=== PATIENT | male | born 1950 | race Caucasian/White ===

== ENCOUNTER 2016-11-27 09:04 | Emergency (ER) | payer OTHER ==
[2016-11-27 09:11] VITALS: TEMP 98.4
--- NOTE | 2016-11-27 10:13 | EDPHY ---
H & P Time Seen by Provider: 11/27/16 10:12 HPI/ROS: Chief complaint. Blood in stool HPI. 66-year-old male presents with blood in stool for 1 day. He has blood on his toilet paper with wiping. He does have a history of hemorrhoids but does not feel it is inflamed or sore. No abdominal pain or nausea vomiting. He had a colonoscopy in July that showed some polyps. His med list shows Plavix and aspirin but now he is taking aspirin only. No previous history of GI bleeding. The blood is described as maroon in color. ROS Constitutional. no fever/chills, no weakness Eyes. no problems with vision ENT. no sore throat, no nasal drainage Cardiovascular. no chest pain Respiratory. no shortness of breath, no cough Abdominal. Blood in stool . no problems urinating MS. no calf pain/swelling, no neck/back pain, no joint pain Skin. no rash Lymph. no swollen glands Neuro. no headache, no dizziness, no difficulty walking or with speech Past Medical/Surgical History: Past medical history significant for angioplasty with stent, dyslipidemia Social History: , nonsmoker, no alcohol Smoking Status: Never smoked Physical Exam: General Appearance: Alert well-developed male mild distress vital signs are stable Eyes: Pupils equal and round no pallor or injection. ENT, Mouth: Mucous membranes are moist. Respiratory: There are no retractions, lungs are clear to auscultation. Cardiovascular: Regular rate and rhythm. Gastrointestinal: Abdomen is soft and nontender, no masses, bowel sounds normal. Rectal exam shows a non thrombosed or bleeding hemorrhoid. Stool from above is brown in color Neurological: Awake and alert, sensory and motor exams grossly normal. Skin: Warm and dry, no rashes. Musculoskeletal: Neck is supple nontender. Extremities symmetrical, full range of motion. Psychiatric: Patient is oriented X 3, there is no agitation. Constitutional: Initial Vital Signs Temperature (C) 36.9 C 11/27/16 09:09 Heart Rate 66 11/27/16 09:09 Respiratory Rate 16 11/27/16 09:09 Blood Pressure 171/83 H 11/27/16 09:09 O2 Sat (%) 94 11/27/16 09:09 O2 Delivery Mode Room Air Allergies/Adverse Reactions: No Known Allergies Allergy (Unverified 03/19/09 11:22) Home Medications: Medication Instructions Recorded Aspirin 03/19/09 COREG CR 03/19/09 Lisinopril 03/19/09 Plavix 03/19/09 Simvastatin 03/19/09 Aspirin [Aspirin 81mg (*)] 08/01/14 Medical Decision Making Procedures: IV normal saline ED Course/Re-evaluation: Re-evaluation 11:55 a.m..--patient and I discussed laboratory evaluation. We discussed treatment plan including criteria for return and importance of follow- up and further evaluation. He expresses understanding and agreement Differential Diagnosis: There is no evidence of bleeding at this point. I suspect that the bleeding may have been coming from his hemorrhoid. His workup is normal including stable vital signs, stable blood level, Hemoccult-negative stool. I considered lower GI bleed, colitis, diverticulitis as well. He has had no abdominal pain - Data Points Laboratory Results: Laboratory Results 11/27/16 10:30 11/27/16 10:30 11/27/16 11/27/16 11/27/16 10:30 10:30 10:30 WBC 7.63 10^3/uL 10^3/uL (3.80-9.50) RBC 5.34 10^6/uL 10^6/uL (4.40-6.38) Hgb 16.1 g/dL g/dL (13.7-17.5) Hct 46.1 % % (40.0-51.0) MCV 86.3 fL fL (81.5-99.8) MCH 30.1 pg pg (27.9-34.1) MCHC 34.9 g/dL g/dL (32.4-36.7) RDW 12.5 % % (11.5-15.2) Plt Count 245 10^3/uL 10^3/uL (150-400) MPV 9.0 fL fL (8.7-11.7) Neut % (Auto) 59.3 % % (39.3-74.2) Lymph % (Auto) 29.0 % % (15.0-45.0) Rap[place] % (Auto) 8.5 % % (4.5-13.0) Eos % (Auto) 2.1 % % (0.6-7.6) Baso % (Auto) 0.8 % % (0.3-1.7) Nucleat RBC Rel Count 0.0 % % (0.0-0.2) Absolute Neuts (auto) 4.53 10^3/uL 10^3/uL (1.70-6.50) Absolute Lymphs (auto) 2.21 10^3/uL 10^3/uL (1.00-3.00) Absolute Monos (auto) 0.65 10^3/uL 10^3/uL (0.30-0.80) Absolute Eos (auto) 0.16 10^3/uL 10^3/uL (0.03-0.40) Absolute Basos (auto) 0.06 10^3/uL 10^3/uL (0.02-0.10) Absolute Nucleated RBC 0.00 10^3/uL 10^3/uL (0-0.01) Immature Gran % 0.3 % % (0.0-1.1) Immature Gran # 0.02 10^3/uL 10^3/uL (0.00-0.10) PT 13.4 SEC SEC (12.0-15.0) INR 1.03 (0.83-1.16) APTT 31.4 SEC SEC (23.0-38.0) Sodium 141 mEq/L mEq/L (134-144) Potassium 4.4 mEq/L mEq/L (3.5-5.2) Chloride 108 mEq/L mEq/L (97-110) Carbon Dioxide 21 mEq/l L mEq/l (22-31) Anion Gap 12 mEq/L mEq/L (8-16) BUN 16 mg/dL mg/dL (7-23) Creatinine 1.4 mg/dL H mg/dL (0.7-1.3) Estimated GFR 50 Glucose 88 mg/dL mg/dL (70-100) Calcium 9.2 mg/dL mg/dL (8.5-10.4) Stool Occult Bld Scrn 11/27/16 10:20 WBC RBC Hgb Hct MCV MCH MCHC RDW Plt Count MPV Neut % (Auto) Lymph % (Auto) Rap[place] % (Auto) Eos % (Auto) Baso % (Auto) Nucleat RBC Rel Count Absolute Neuts (auto) Absolute Lymphs (auto) Absolute Monos (auto) Absolute Eos (auto) Absolute Basos (auto) Absolute Nucleated RBC Immature Gran % Immature Gran # PT INR APTT Sodium Potassium Chloride Carbon Dioxide Anion Gap BUN Creatinine Estimated GFR Glucose Calcium Stool Occult Bld Scrn NEGATIVE (NEGATIVE) Medications Given: Discontinued Medications Sodium Chloride (Ns) 1,000 mls @ 0 mls/hr IV EDNOW ONE; Wide Open PRN Reason: Protocol Stop: 11/27/16 10:29 Last Admin: 11/27/16 10:37 Dose: 1,000 mls Departure - Departure Disposition: Home, Routine, Self-Care Clinical Impression: Hemorrhoid Qualifiers: Hemorrhoid type: unspecified Qualified Code(s): K64.9 - Unspecified hemorrhoids Condition: Good Instructions: Hemorrhoids (ED) Additional Instructions: Soap bottom in warm bath 2-3 times daily next 2 days. Return for abdominal pain , vomiting, worsening blood in stool. Follow up with Gastroenterology for continuing symptoms Referrals: Armani Mobley MD [Primary Care Provider] - As per Instructions Wilfrdi Laguerre MD [Medical Doctor] - As per Instructions
[2016-11-27] MEDS ORDERED: NS 1,000 ML IV ONE (10:28)
[2016-11-27 10:37] LABS: % IMMATURE GRANULYOCYTES 0.3 % (0.0-1.1); ABSOLUTE IMMATURE GRANULOCYTES 0.02 10^3/uL (0.00-0.10); ADD DIFF? NO; ADD MORPH? NO; ADD SCAN? NO; ATYPICAL LYMPHOCYTE FLAG 10 (0-99); FRAGMENT RBC FLAG 0 (0-99); HEMATOCRIT 46.1 % (40.0-51.0); HEMOGLOBIN 16.1 g/dL (13.7-17.5); LEFT SHIFT FLG 0 (0-99); LIPEMIA HEMOLYSIS FLAG 90 (0-99); MEAN CELL HEMOGLOBIN 30.1 pg (27.9-34.1); MEAN CELL HEMOGLOBIN CONCENTR. 34.9 g/dL (32.4-36.7); MEAN CELL VOLUME 86.3 fL (81.5-99.8); PLATELET CLUMPS FLAG 10 (0-99); PLATELET COUNT 245 10^3/uL (150-400); RED BLOOD CELL COUNT 5.34 10^6/uL (4.40-6.38); RED CELL DISTRIBUTION WIDTH 12.5 % (11.5-15.2)
[2016-11-27 10:49] LABS: APTT 31.4 SEC (23.0-38.0); INR 1.03 (0.83-1.16); PROTIME(PATIENT) 13.4 SEC (12.0-15.0)
[2016-11-27 10:59] LABS: ANION GAP 12 mEq/L (8-16); CALCIUM 9.2 mg/dL (8.5-10.4); CARBON DIOXIDE 21 mEq/l (22-31); CHLORIDE 108 mEq/L (97-110); CREATININE 1.4 mg/dL (0.7-1.3); GLOMERULAR FILTRATION RATE 50; GLUCOSE 88 mg/dL (70-100); POTASSIUM 4.4 mEq/L (3.5-5.2); SODIUM 141 mEq/L (134-144)
[2016-11-27 12:08] VITALS: BP 133/77; PULSE 56; RESP 16; O2SAT 96
== END 2016-11-27 12:10 | disposition home or self-care (01) ==
DX: K64.9 Unspecified hemorrhoids (principal); E86.9 Volume depletion, unspecified; Z79.82 Long term (current) use of aspirin; Z79.01 Long term (current) use of anticoagulants

== ENCOUNTER 2017-11-23 19:08 | Emergency (ER) | payer OTHER ==
--- NOTE | 2017-11-23 19:13 | EDPHY ---
H & P Time Seen by Provider: 11/23/17 19:13 HPI/ROS: HPI CHIEF COMPLAINT: Unable to urinate HISTORY OF PRESENT ILLNESS: This 67-year-old male, history of coronary artery disease with stent, BPH, presents emergency room stating that he is unable to urinate. He states that he last urinated a normal void yesterday. Throughout the day today he states he has been having urinary urgency, pressure, suprapubic tenderness and the urge to go but able to do so. States he has a "dribbling stream" denies significant back pain, denies fever, denies vomiting. Denies any chest pain or shortness of breath. Patient has never had this before however he states that his primary care "watches him for BPH" Past Medical History: Coronary artery disease with stent. Past Surgical History: PTCA Social History: Denies drugs alcohol tobacco Family History: Noncontributory ROS REVIEW OF SYSTEMS: A comprehensive 10 point review of systems is otherwise negative aside from elements mentioned in the history of present illness. Exam Constitutional elderly, nontoxic appearing, triage nursing summary reviewed, vital signs reviewed, awake/alert. Eyes normal conjunctivae and sclera, EOMI, PERRLA. HENT normal inspection, atraumatic, moist mucus membranes, no epistaxis, neck supple/ no meningismus, no raccoon eyes. Respiratory clear to auscultation bilaterally, normal breath sounds, no respiratory distress, no wheezing. Cardiovascular rate normal, regular rhythm, no murmur, no edema, distal pulses normal. Gastrointestinal abdominal exam mild tenderness palpation of the suprapubic region, palpable distended bladder on exam, no rebound, no guarding, normal bowel sounds, no distension, no pulsatile mass. Genitourinary no CVA tenderness. Musculoskeletal no midline vertebral tenderness, full range of motion, no calf swelling, no tenderness of extremities, no meningismus, good pulses, neurovascularly intact. Skin pink, warm, & dry, no rash, skin atraumatic. Neurologic awake, alert and oriented x 3, AAOx3, moves all 4 extremities equally, motor intact, sensory intact, CN II-XII intact, normal cerebellar, normal vision, normal speech. Psychiatric normal mood/affect. Heme/Lymph/Immune no lymphadenopathy. Differential Diagnosis: Includes but is not limited to in a particular order outflow obstruction, BPH, cystitis, UTI, prostatitis Medical Decision Making: Plan for this patient given that he has a distended bladder on exam, abdominal pain, unable to urinate a Ashby catheter will be placed under sterile conditions. Check urinalysis. Re-evaluate. Re-evaluation: Catheter placed. Good urine output. Patient understands he needs follow up with Urology outpatient basis. Return emergency room if there is any worsening symptoms questions or concerns. Source: Patient - Medical/Surgical History Hx Asthma: No Hx Chronic Respiratory Disease: No Hx Diabetes: No Hx Cardiac Disease: Yes Hx Renal Disease: No Hx Cirrhosis: No Hx Alcoholism: No Hx HIV/AIDS: No Hx Splenectomy or Spleen Trauma: No Other PMH: PMH:stent x1, high cholesterol. PSH:stent, dental - Social History Smoking Status: Never smoked Constitutional: Initial Vital Signs Heart Rate 82 11/23/17 19:16 Respiratory Rate 16 11/23/17 19:16 Blood Pressure 172/81 H 11/23/17 19:16 O2 Sat (%) 94 11/23/17 19:16 O2 Delivery Mode Room Air Allergies/Adverse Reactions: tamsulosin [From Flomax] Allergy (Verified 11/24/17 06:49) Home Medications: Medication Instructions Recorded COREG CR 03/19/09 Aspirin [Aspirin 81mg (*)] 08/01/14 Lipitor 11/23/17 Tamsulosin HCl [Flomax 0.4 MG (*)] 0.4 mg PO DAILY #10 cap 11/23/17 Bystolic 11/24/17 Medical Decision Making - Data Points Medications Given: Discontinued Medications Lidocaine (Uroject Lidocaine 2% Jelly) 20 ml UR EDNOW ONE Stop: 11/23/17 19:30 Last Admin: 11/23/17 19:30 Dose: 20 ml Departure - Departure Disposition: Home, Routine, Self-Care Clinical Impression: Urinary (tract) obstruction Condition: Good Instructions: [facility] Patient Education, Infection Prevention, Urinary Retention in Men (ED) Additional Instructions: 1. You need to follow up with Urology. Please call their for follow-up appointment 2. Return emergency room if you have any worsening symptoms includes abdominal pain, fever, vomiting. Referrals: Armani Mobley MD [Primary Care Provider] - As per Instructions Jeff Conte MD [Medical Doctor] - As per Instructions Prescriptions: Tamsulosin HCl [Flomax 0.4 MG (*)] 0.4 mg PO DAILY #10 cap
[2017-11-23] MEDS ORDERED: LIDOCAINE 2% JELLY 20 ML (UROJECT) ONE (19:19)
[2017-11-23] MEDS ORDERED: LIDOCAINE 2% JELLY 20 ML (UROJECT) UR ONE (19:29)
[2017-11-23 20:23] VITALS: BP 141/69
== END 2017-11-23 20:21 | disposition home or self-care (01) ==
PROC: 0T9B70Z Drainage of Bladder with Drainage Device, Via Natural or Artificial Opening (ICD-10-PCS; principal; 2017-11-23)
DX: N13.9 Obstructive and reflux uropathy, unspecified (principal); I25.10 Atherosclerotic heart disease of native coronary artery without angina pectoris; Z79.82 Long term (current) use of aspirin; Z95.5 Presence of coronary angioplasty implant and graft